=== PATIENT | female | born 1970 | race Caucasian/White ===

== ENCOUNTER 2016-04-06 07:46 | Outpatient (CLI) | payer BC, OTHER | END 2016-04-06 07:47 | disposition home or self-care (01) | DX: R10.13 Epigastric pain (principal); D50.9 Iron deficiency anemia, unspecified ==

== ENCOUNTER 2016-05-31 07:48 | Day surgery (SDC) | payer OTHER ==
[2016-05-31] MEDS ORDERED: LACTATED RINGERS 1,000 ML IV ONE (08:10)
[2016-05-31] MEDS ORDERED: MIDAZOLAM 2 MG/2 ML VIAL IVP ONE (09:18)
[2016-05-31] MEDS ORDERED: fentaNYL 250 MCG/5 ML VIAL IVP ONE (09:18)
== END 2016-05-31 07:49 | disposition home or self-care (01) ==
PROC: 0DB68ZX Excision of Stomach, Via Natural or Artificial Opening Endoscopic, Diagnostic (ICD-10-PCS; principal; 2016-05-31 09:00)
DX: R10.13 Epigastric pain (principal); R10.12 Left upper quadrant pain; K31.9 Disease of stomach and duodenum, unspecified; Z87.891 Personal history of nicotine dependence; Z88.5 Allergy status to narcotic agent
CPT/HCPCS: 43239; 87081; J3010; J7120

== ENCOUNTER 2017-07-25 08:00 | Outpatient (CLI) | payer BC, OTHER | END 2017-07-25 08:01 | LOC: LAB.WCP 08:00 | PROVIDERS: ATTEND Family Medicine | DX: N39.0 Urinary tract infection, site not specified (principal) | CPT/HCPCS: 87086 ==

== ENCOUNTER 2017-11-02 11:51 | Outpatient (CLI) | payer BC ==
--- NOTE | 2017-11-02 13:01 | XRAY Report ---
Reason: WRIST JOINT PAIN Procedure Date: 11/02/2017 Accession Number: [id number] / [id number] Procedure: XR - Wrist 4 View LT CPT Code: FULL RESULT: EXAM: LEFT WRIST RADIOGRAPHY EXAM DATE: 11/02/2017 12:19 PM. CLINICAL HISTORY: Wrist joint pain. COMPARISON: None. TECHNIQUE: 4 views. FINDINGS: There is a subtle lucency through the scaphoid with sclerotic line consistent with nondisplaced scaphoid fracture. IMPRESSION: Scaphoid fracture. RADIA
== END 2017-11-02 11:52 | disposition home or self-care (01) ==
LOC: DI 11:51
PROVIDERS: ATTEND Family Medicine
DX: S62.002A Unspecified fracture of navicular [scaphoid] bone of left wrist, initial encounter for closed fracture (principal)

== ENCOUNTER 2017-12-06 17:07 | Outpatient (CLI) | payer BC ==
--- NOTE | 2017-12-07 12:29 | CT Report ---
Reason: NONDISPLACED FRACTURE OF MIDDLE THIRD OF NAVICULAR Procedure Date: 12/06/2017 Accession Number: [id number] / [id number] Procedure: CT - Upper Extremity Left W/O CPT Code: FULL RESULT: EXAM: LEFT ELBOW CT WITHOUT CONTRAST EXAM DATE: 12/06/2017 05:41 PM. CLINICAL HISTORY: Nondisplaced fracture of middle third of navicular. COMPARISON: WRIST 3 VIEW LT 11/02/2017 11:56 AM WRIST 3 VIEW LT 11/27/2017 4:10 PM WRIST 2 VIEW LT 11/27/2017 4:12 PM. TECHNIQUE: Thin-section axial images were acquired of the elbow without contrast. Post-processing: Coronal and sagittal reformats. Other: None. In accordance with CT protocol optimization, one or more of the following dose reduction techniques were utilized for this exam: automated exposure control, adjustment of mA and/or KV based on patient size, or use of iterative reconstructive technique. FINDINGS: Bones: No acute fracture visualized. There is some cortical irregularity at the dorsal aspect of the proximal scaphoid which could represent an old healed fracture. Scaphoid otherwise appears normal. No scaphoid waist fracture identified. No destructive bone lesions. Joints: Normal. No large elbow effusion. No calcified loose bodies. Musculature: Normal. No fatty atrophy. Other: None. IMPRESSION: 1. No evidence of an acute, subacute or ununited fracture. 2. Slight cortical irregularity at the proximal dorsal aspect of the scaphoid could represent developmental variation or possibly old healed fracture. RADIA
== END 2017-12-06 17:08 | disposition home or self-care (01) ==
LOC: DI 17:07
PROVIDERS: ATTEND Orthopaedic Surgery Sports Medicine
DX: S62.025 Nondisplaced fracture of middle third of navicular [scaphoid] bone of left wrist (principal)

== ENCOUNTER 2018-03-04 08:13 | Outpatient (CLI) | payer BC ==
[2018-03-04 15:20] LABS: % IRON SATURATION 3 % (20-50); ALBUMIN 3.9 g/dL (3.2-5.5); ALBUMIN/GLOBULIN RATIO 1.3 (1.0-2.2); ALKALINE PHOSPHATASE 46 IU/L (42-121); ALT ALANINE AMINOTRANSFERASE 11 IU/L (10-60); AST ASPARTATE AMINOTRANSFERASE 16 IU/L (10-42); BILIRUBIN,TOTAL 0.3 mg/dL (0.2-1.0); BUN - BLOOD UREA NITROGEN 9 mg/dL (6-20); CALCIUM 8.7 mg/dL (8.5-10.3); CARBON DIOXIDE - CO2 25 mmol/L (21-32); CHLORIDE 104 mmol/L (101-111); CHOL/HDL RATIO 2.5 (<4.4); CHOLESTEROL 188 mg/dL; CREATININE 0.8 mg/dL (0.4-1.0); GFR - MDRD 77 (>89); GLUCOSE 82 mg/dL (70-100); HDL CHOLESTEROL 75 mg/dL; IRON 12 ug/dL (28-170); SODIUM 136 mmol/L (135-145); TOTAL IRON BINDING CAPACITY 428 ug/dL (250-450); TOTAL PROTEIN 6.8 g/dL (6.7-8.2); TRANSFERRIN 306 mg/dL (192-382)
[2018-03-04 15:51] LABS: LDL CHOLESTEROL,DIRECT 111 mg/dL; LDLD/HDL RATIO 1.5 (<4.4)
[2018-03-04 16:39] LABS: BASOPHILS # (AUTO) 0.1 10^3/uL (0.0-0.1); BASOPHILS % (AUTO) 1.8 %; EOSINOPHILS % (AUTO) 15.5 %; HGB - HEMOGLOBIN 8.2 g/dL (12.0-16.0); LYMPHOCYTES # (AUTO) 2.2 10^3/uL (1.5-3.5); LYMPHOCYTES % (AUTO) 35.7 %; MEAN CORPUSCULAR HEMOGLOBIN 19.4 pg (27.0-31.0); MEAN CORPUSCULAR HGB CONC 30.6 g/dL (32.0-36.0); MEAN CORPUSCULAR VOLUME 63.6 fL (81.0-99.0); MEAN PLATELET VOLUME 8.1 fL (7.9-10.8); MONOCYTES # (AUTO) 0.5 10^3/uL (0.0-1.0); MONOCYTES % (AUTO) 7.8 %; NEUTROPHILS # (AUTO) 2.4 10^3/uL (1.5-6.6); NEUTROPHILS % (AUTO) 39.2 %; PLT - PLATELET COUNT 433 10^3/uL (130-450); RED BLOOD COUNT 4.22 10^6/uL (4.20-5.40); RED CELL DISTRIBUTION WIDTH 21.2 % (12.0-15.0); WHITE BLOOD COUNT 6.2 x10^3/uL (4.8-10.8)
[2018-03-04 17:48] LABS: PLATELET MORPHOLOGY NORMAL APPEARANCE (NORMAL)
[2018-03-04 17:49] LABS: PLATELET ESTIMATE, MANUAL NORMAL (130-450,000) (NORMAL)
== END 2018-03-04 23:59 | disposition home or self-care (01) ==
LOC: LAB.WCP 08:13
PROVIDERS: ATTEND Family Medicine
DX: R10.13 Epigastric pain (principal); Z13.220 Encounter for screening for lipoid disorders; D50.9 Iron deficiency anemia, unspecified
CPT/HCPCS: 36415; 80053; 80061; 83540; 83721; 84466; 85025

== ENCOUNTER 2018-04-10 11:53 | Outpatient (CLI) | payer BC ==
[2018-04-10] MEDS ORDERED: REGADENOSON 0.4 MG/5 ML SYRINGE IVP ONE ×2 (13:02→14:52)
--- NOTE | 2018-04-10 15:53 | CARDIAC PROCEDURE NOTE ---
DATE OF SERVICE: 04/10/2018 Physician: Jimena Carter MD, [facility] INDICATION: Chest pain. CARDIAC RISK FACTORS: Family history of early heart disease (her father at age 49 of a cardiac event). PROCEDURE: After signing informed consent, the patient underwent a Lexiscan pharmaceutical stress test with nuclear myocardial perfusion imaging. RESTING HEART RATE: 87. PEAK HEART RATE: 124. The heart rate was very slow to recover (she states this is very typical and that she can "have heart rates of 120-170 during the day"). RESTING BLOOD PRESSURE: 140/70. PEAK BLOOD PRESSURE: 95/55. The blood pressure recovered after 2 minutes. Lexiscan was infused per protocol. The patient developed a mild headache only briefly, she had no chest pain or shortness of breath. RESTING EKG: Normal sinus rhythm, 0.[address] depressions in leads II, III, aVF, inverted T waves in leads III and aVF and biphasic T in lead V3. EKG AT PEAK: Deeper T-wave inversions now seen in leads II, III, aVF, V3 through V5 and flat T wave in V6. Unchanged ST segment abnormalities in leads II, III, aVF and new ST segment depressions of 1 mm in leads V3 through V6. IMPRESSION 1. Abnormal resting EKG. 2. Ischemic changes are present on this pharmaceutical stress test. 3. Abnormal heart rate and blood pressure response. 4. Nuclear images reported separately. cc: Freddie Zambrano DO TD: 04/10/2018 15:44 MTDD
--- NOTE | 2018-04-10 16:55 | Nuclear Medicine Report ---
Reason: CHEST PAIN Procedure Date: 04/10/2018 Accession Number: [id number] / [id number] Procedure: NM - Myocardial Perfusion STR/RST CPT Code: FULL RESULT: EXAM: SINGLE-ISOTOPE PHARMACOLOGICAL STRESS TEST WITH REGADENOSON. SINGLE-ISOTOPE AND ONE-DAY REST/STRESS MYOCARDIAL PERFUSION SCANS WITH TOMOGRAPHIC IMAGING, QUANTITATIVE ANALYSIS, WALL MOTION ANALYSIS AND CALCULATION OF EJECTION FRACTION. EXAM DATE: 04/10/2018 04:17 PM. CLINICAL HISTORY: CHEST PAIN. COMPARISON: None available. TECHNIQUE: After the intravenous administration of 10.6 mCi of Tc-99m sestamibi, a rest myocardial perfusion scan was done with tomography. Motion correction was applied when appropriate. After an appropriate delay, pharmacological stress was performed with the infusion of 0.4 mg regadenoson per protocol. According to protocol, 44 mCi of Tc-99m sestamibi was injected for stress myocardial perfusion scan. Motion correction was applied when appropriate. Gated tomographic images were obtained for wall motion analysis and computation of left ventricular ejection fraction. FINDINGS: On visual analysis, there is decreased activity in the anteroseptal wall which appears similar between rest and stress images. The computer reports lateral wall ischemia which I do not appreciate on visual analysis. Computer analysis Summed stress score 8 Summed rest score 3 Summed difference score 5 Wall motion analysis demonstrates no focal wall motion abnormality. The left ventricular end-diastolic volume is 41 cc. The left ventricular end-systolic volume is 12 cc. The left ventricular ejection fraction is calculated to be 70%. IMPRESSION: 1. On visual analysis, there is decreased activity in the anteroseptal wall, similar between rest and stress images, old infarct versus attenuation artifact. 2. Left ventricular ejection fraction of 70%. 3. Normal segmental and global wall motion. 4. Normal left ventricular cavity size, no change with stress. 5. Based on computer analysis, mildly abnormal study with moderate ischemia. RADIA
== END 2018-04-10 11:54 | disposition home or self-care (01) ==
LOC: DI 11:53
PROVIDERS: ATTEND Family Medicine
DX: R07.9 Chest pain, unspecified (principal); R94.31 Abnormal electrocardiogram [ECG] [EKG]
CPT/HCPCS: 78452; 93017; A9500; J2785

== ENCOUNTER 2019-04-22 17:59 | Outpatient (CLI) | payer OTHER ==
--- NOTE | 2019-04-22 23:14 | XRAY Report ---
Reason: L ANKLE PAIN Procedure Date: 04/22/2019 Accession Number: [id number] / [id number] Procedure: XR - Ankle 3 View LT CPT Code: Final Report FULL RESULT: EXAM: LEFT ANKLE RADIOGRAPHY EXAM DATE: 04/22/2019 06:18 PM. CLINICAL HISTORY: L ANKLE PAIN. COMPARISON: None. TECHNIQUE: 3 views. FINDINGS: Bones: Normal. No fractures or bone lesions. Joints: Normal. No effusion. No subluxations. The ankle mortise is normally aligned. Soft Tissues: Normal. No soft tissue swelling. IMPRESSION: Normal ankle radiography. RADIA
== END 2019-04-22 18:00 | disposition home or self-care (01) ==
LOC: DI 17:59
PROVIDERS: ATTEND Physician Assistant
DX: M25.572 Pain in left ankle and joints of left foot (principal)

== ENCOUNTER 2020-06-17 16:58 | Outpatient (CLI) | payer OTHER ==
[2020-06-17 20:52] LABS: BASOPHILS # (AUTO) 0.1 10^3/uL (0.0-0.1); BASOPHILS % (AUTO) 1.4 %; EOSINOPHILS # (AUTO) 0.5 10^3/uL (0.0-0.7); HCT - HEMATOCRIT 37.2 % (37.0-47.0); LYMPHOCYTES # (AUTO) 2.4 10^3/uL (1.5-3.5); LYMPHOCYTES % (AUTO) 32.8 %; MEAN CORPUSCULAR HEMOGLOBIN 28.8 pg (27.0-31.0); MEAN CORPUSCULAR HGB CONC 32.3 g/dL (32.0-36.0); MEAN CORPUSCULAR VOLUME 89.2 fL (81.0-99.0); MEAN PLATELET VOLUME 9.6 fL (7.9-10.8); MONOCYTES # (AUTO) 0.5 10^3/uL (0.0-1.0); MONOCYTES % (AUTO) 6.5 %; NEUTROPHILS # (AUTO) 3.8 10^3/uL (1.5-6.6); PLT - PLATELET COUNT 341 10^3/uL (130-450); RED BLOOD COUNT 4.17 10^6/uL (4.20-5.40); RED CELL DISTRIBUTION WIDTH 13.5 % (12.0-15.0); WHITE BLOOD COUNT 7.3 x10^3/uL (4.8-10.8)
[2020-06-17 21:54] LABS: ALBUMIN 4.3 g/dL (3.2-5.5); ALBUMIN/GLOBULIN RATIO 1.5 (1.0-2.2); BILIRUBIN,TOTAL 0.4 mg/dL (0.2-1.0); CALCIUM 8.9 mg/dL (8.5-10.3); CREATININE 0.7 mg/dL (0.4-1.0); POTASSIUM 4.2 mmol/L (3.5-5.0); TOTAL PROTEIN 7.2 g/dL (6.7-8.2)
== END 2020-06-17 16:59 | disposition home or self-care (01) ==
LOC: LAB.N 16:58
PROVIDERS: ATTEND Family Medicine
DX: D50.9 Iron deficiency anemia, unspecified (principal)
CPT/HCPCS: 36415; 80053; 82728; 83540; 84466; 85025

== ENCOUNTER 2021-02-21 07:56 | Outpatient (CLI) | payer OTHER ==
--- NOTE | 2021-02-21 09:49 | Ultrasound Report ---
PROCEDURE: Pelvic w/Transvaginal INDICATIONS: MENORRHAGIA TECHNIQUE: Real-time scanning was performed of the pelvic organs, with image documentation. Additional endovagi nal scanning was necessary due to incomplete visualization of the adnexal and endometrial structures by transabdominal scanning. COMPARISON: 05/05/2013 FINDINGS: No pathologic free abdominal or pelvic fluid. Uterus: Uterus is anteverted and at the upper limits of normal in size at 9.9 x 4.6 x 4.9 cm. The m yometrium is diffusely heterogeneous without dominant mass. The endometrium is indistinct. The endome trium measures 7.5 mm in combined thickness. Ovaries: Right ovary measures 3.4 x 2.0 x 3.5 cm for a volume of 12.4 cc. Left ovary measures 2.3 x 2.0 x 1.7 cm for a volume of 4.1 cc. There are less than 12 follicles per ovary. No dominant follicle or cyst. No suspicious adnexal mass. IMPRESSION: 1. Mildly heterogeneous myometrium in the uterus at the upper limits of normal in size. This raises t he possibility of adenomyosis and clinical correlation is recommended. 2. No dominant ovarian mass or cyst. 3. Normal endometrial thickness. Reviewed by: Sadie Swan MD on 02/21/2021 9:47 AM PST Approved by: Sadie Swan MD on 02/21/2021 9:47 AM PST Station ID: [id number]
== END 2021-02-21 07:57 | disposition home or self-care (01) ==
LOC: DI 07:56
PROVIDERS: ATTEND Obstetrics & Gynecology
DX: N92.0 Excessive and frequent menstruation with regular cycle (principal)

== ENCOUNTER 2021-03-17 17:19 | Outpatient (CLI) | payer OTHER ==
[2021-03-17 20:51] LABS: HGB - HEMOGLOBIN 11.8 g/dL (12.0-16.0); MEAN CORPUSCULAR HEMOGLOBIN 27.7 pg (27.0-31.0); MEAN CORPUSCULAR HGB CONC 31.9 g/dL (32.0-36.0); MEAN CORPUSCULAR VOLUME 86.9 fL (81.0-99.0); MEAN PLATELET VOLUME 9.9 fL (7.9-10.8); RED BLOOD COUNT 4.26 10^6/uL (4.20-5.40); RED CELL DISTRIBUTION WIDTH 14.1 % (12.0-15.0); WHITE BLOOD COUNT 7.9 x10^3/uL (4.8-10.8)
[2021-03-17 21:05] LABS: % IRON SATURATION 6 % (20-50); IRON 22 ug/dL (28-170); TOTAL IRON BINDING CAPACITY 347 ug/dL (250-450); TRANSFERRIN 248 mg/dL (192-382)
== END 2021-03-17 17:20 | disposition home or self-care (01) ==
LOC: LAB.N 17:19
PROVIDERS: ATTEND Obstetrics & Gynecology
DX: D50.9 Iron deficiency anemia, unspecified (principal); N92.0 Excessive and frequent menstruation with regular cycle
CPT/HCPCS: 36415; 82728; 83540; 84466; 85025; 85027

== ENCOUNTER 2021-05-23 08:09 | Outpatient (CLI) | payer OTHER ==
[2021-05-23 08:39] LABS: BASOPHILS # (AUTO) 0.1 10^3/uL (0.0-0.1); BASOPHILS % (AUTO) 1.2 %; EOSINOPHILS # (AUTO) 0.6 10^3/uL (0.0-0.7); EOSINOPHILS % (AUTO) 10.1 %; HGB - HEMOGLOBIN 12.8 g/dL (12.0-16.0); LYMPHOCYTES # (AUTO) 1.8 10^3/uL (1.5-3.5); LYMPHOCYTES % (AUTO) 31.4 %; MEAN CORPUSCULAR HEMOGLOBIN 28.4 pg (27.0-31.0); MEAN CORPUSCULAR VOLUME 88.7 fL (81.0-99.0); MEAN PLATELET VOLUME 9.2 fL (7.9-10.8); MONOCYTES # (AUTO) 0.4 10^3/uL (0.0-1.0); MONOCYTES % (AUTO) 7.5 %; NEUTROPHILS # (AUTO) 2.9 10^3/uL (1.5-6.6); NEUTROPHILS % (AUTO) 49.5 %; PLT - PLATELET COUNT 268 10^3/uL (130-450); RED BLOOD COUNT 4.51 10^6/uL (4.20-5.40); RED CELL DISTRIBUTION WIDTH 15.3 % (12.0-15.0); WHITE BLOOD COUNT 5.8 x10^3/uL (4.8-10.8)
[2021-05-23 09:45] LABS: HCG UR QUAL NEGATIVE
== END 2021-05-23 08:10 | disposition home or self-care (01) ==
LOC: LAB 08:09
PROVIDERS: ATTEND Obstetrics & Gynecology
DX: Z01.812 Encounter for preprocedural laboratory examination (principal); N93.8 Other specified abnormal uterine and vaginal bleeding; N92.0 Excessive and frequent menstruation with regular cycle
CPT/HCPCS: 36415; 81025; 85025

== ENCOUNTER 2021-05-24 06:22 | Day surgery (SDC) | payer OTHER ==
[2021-05-24] MEDS ORDERED: GABAPENTIN 400 MG CAPSULE ONE (06:25)
[2021-05-24] MEDS ORDERED: ACETAMINOPHEN 1,000 MG/100 ML 100 ML IV ONE (06:25)
[2021-05-24] MEDS ORDERED: LACTATED RINGERS 1,000 ML IV ONE ×2 (06:25→08:57)
[2021-05-24] MEDS ORDERED: CELECOXIB 100 MG CAPSULE PO ONE (06:25)
[2021-05-24] MEDS ORDERED: METOCLOPRAMIDE 10 MG/2 ML VIAL IVP PRN (07:13)
[2021-05-24] MEDS ORDERED: ATROPINE ABBOJECT 1 MG/10 ML SYRINGE IVP PRN (07:13)
[2021-05-24] MEDS ORDERED: ONDANSETRON 4 MG/2 ML VIAL IVP PRN (07:13)
[2021-05-24] MEDS ORDERED: fentaNYL 100 MCG/2 ML VIAL IVP PRN (07:13)
[2021-05-24] MEDS ORDERED: ePHEDrine 50 MG/ML VIAL IVP PRN (07:13)
[2021-05-24] MEDS ORDERED: HYDROmorphone 0.5 MG/0.5 ML SYRINGE IVP PRN (07:13)
[2021-05-24] MEDS ORDERED: MORPHINE 2 MG/ML CARPUJECT IVP PRN (07:13)
[2021-05-24] MEDS ORDERED: NALOXONE 0.4 MG/ML VIAL IVP PRN (07:13)
--- NOTE | 2021-05-24 07:13 | ANESTHESIA ---
Pre-Anesthesia VS, & Labs - Diagnosis anemia - Procedure myosure, hysteroscopy Vital Signs: Temp Pulse Resp BP Pulse Ox 37.1 C 66 16 101/73 100 05/24/21 06:26 05/24/21 06:26 05/24/21 06:26 05/24/21 06:26 05/24/21 06:26 Height: 5 ft 6 in Weight (kg): 53 kg Body Mass Index: 18.8 BMI Classification: Healthy weight - NPO >8 hours - Is Patient ?: No - Lab Results Current Lab Results: Laboratory Tests 05/24/21 06:57: POC Whole Bld Glucose 88 Lab results reviewed: Yes Home Medications and Allergies Home Medications: Ambulatory Orders Aspirin/Acetaminophen/Caffeine [Excedrin Migraine Caplet] 1 each PO PRN PRN 05/16/21 Cetirizine [ZyrTEC] 10 mg PO DAILY PRN 05/16/21 Rizatriptan Benzoate [Rizatriptan] 10 mg PO PRN PRN 05/31/16 Albuterol Sulfate [Proair Hfa Inhaler] 1 - 2 puffs INH Q4H PRN 04/04/18 Aspirin/Acetaminophen/Caffeine [Excedrin Migraine Caplet] 1 each PO PRN PRN 05/16/21 Cetirizine [ZyrTEC] 10 mg PO DAILY PRN 05/16/21 Allergies/Adverse Reactions: Allergies Allergy/AdvReac Type Severity Reaction Status Date / Time banana Allergy Severe Anaphylaxis Verified 04/04/18 11:04 tree nut Allergy Severe Hives Verified 04/04/18 11:06 raw vegetable Allergy Intermediate Hives Verified 04/04/18 11:05 Anes History & Medical History - Anesthetic History Anesthesia Complications: reports: No previous complications Family history of Anesthesia Complications: Denies Family history of Malignant Hyperthermia: Denies - Medical History Cardiovascular: reports: None Pulmonary: reports: Asthma Gastrointestinal: reports: None Urinary: reports: None Neuro: reports: Migraines Musculoskeletal: reports: None Endocrine/Autoimmune: reports: None Skin: reports: Eczema Smoking Status: Former smoker - Surgical History General: reports: EGD Gynecologic: reports: Tubal ligation Exam General: Alert, Oriented x3, Cooperative Dental: WNL Mouth Openin Fingerbreadth Neck Mobility: Normal Mallampati classification: II Thyromental Distance: 4-6 cm Respiratory: Lungs clear, Normal breath sounds, No respiratory distress Cardiovascular: Regular rate Neurological: Normal speech Mental/Cognitive Status: Alert/Oriented X3, Normal for patient Cognitive Status: Within normal limits Plan Anesthesia Type: General Consent for Procedure(s) Verified and Reviewed: Yes Code Status: Attempt Resuscitation ASA classification: 2-Mild systemic disease Is this case an emergency?: No
[2021-05-24] MEDS ORDERED: ONDANSETRON 4 MG/2 ML VIAL ONE (07:14)
[2021-05-24] MEDS ORDERED: MIDAZOLAM 2 MG/2 ML VIAL ONE (07:14)
[2021-05-24] MEDS ORDERED: PROPOFOL 200 MG/20 ML VIAL IVP ONE (07:14)
[2021-05-24] MEDS ORDERED: DEXAMETHASONE 4 MG/ML VIAL ONE (07:14)
[2021-05-24] MEDS ORDERED: LIDOCAINE-MPF 2% 5 ML VIAL ONE (07:14)
[2021-05-24] MEDS ORDERED: fentaNYL 100 MCG/2 ML VIAL ONE (07:14)
[2021-05-24 07:19] LABS: BASOPHILS # (AUTO) 0.1 10^3/uL (0.0-0.1); BASOPHILS % (AUTO) 1.5 %; EOSINOPHILS # (AUTO) 0.6 10^3/uL (0.0-0.7); EOSINOPHILS % (AUTO) 11.7 %; HCT - HEMATOCRIT 38.5 % (37.0-47.0); HGB - HEMOGLOBIN 12.4 g/dL (12.0-16.0); LYMPHOCYTES % (AUTO) 37.6 %; MEAN CORPUSCULAR HEMOGLOBIN 28.8 pg (27.0-31.0); MEAN CORPUSCULAR HGB CONC 32.2 g/dL (32.0-36.0); MEAN CORPUSCULAR VOLUME 89.3 fL (81.0-99.0); MEAN PLATELET VOLUME 10.5 fL (7.9-10.8); MONOCYTES # (AUTO) 0.4 10^3/uL (0.0-1.0); MONOCYTES % (AUTO) 8.1 %; NEUTROPHILS # (AUTO) 2.1 10^3/uL (1.5-6.6); NEUTROPHILS % (AUTO) 40.7 %; RED BLOOD COUNT 4.31 10^6/uL (4.20-5.40); RED CELL DISTRIBUTION WIDTH 15.4 % (12.0-15.0); WHITE BLOOD COUNT 5.2 x10^3/uL (4.8-10.8)
[2021-05-24 07:20] LABS: SLIDE REVIEW? Indicated
[2021-05-24] MEDS ORDERED: LIDOCAINE 2%-EPI 1:100000 20 ML MDV ONE (07:49)
[2021-05-24] MEDS ORDERED: BUPIVACAINE 0.5% PF 10 ML VIAL ONE (07:50)
[2021-05-24 07:51] LABS: PLATELET MORPHOLOGY PLATELET CLUMPING (NORMAL)
[2021-05-24] MEDS ORDERED: LACTATED RINGERS 1,000 ML IV SCH (08:00)
[2021-05-24] MEDS ORDERED: LIDOCAINE 2%-EPI 1:100000 20 ML MDV SUBQ ONE (08:45)
[2021-05-24] MEDS ORDERED: BUPIVACAINE 0.5% PF 10 ML VIAL IM ONE (08:45)
--- NOTE | 2021-05-24 09:27 | ANESTHESIA POST OP EVALUATION ---
Anesthesia Post Eval - Post Anesthesia Eval Vitals: Last Vital Signs Temp 36.7 C 05/24/21 09:23 Pulse 68 05/24/21 09:23 Resp 13 05/24/21 09:23 BP 109/74 05/24/21 09:23 Pulse Ox 100 05/24/21 09:23 CV Function Including HR & BP: Stable Pain Control: Satisfactory Nausea & Vomiting: Negative Mental Status: Baseline Respiratory Status: Airway Patent Hydration Status: Satisfactory Anesthesia Complications: None
--- NOTE | 2021-05-24 09:32 | OPERATIVE REPORT ---
Operative Report - General Procedure Date: 05/24/21 Planned Procedure: Hysteroscopy D&C and Novasure endometrial ablation Pre-Op Diagnosis: Dysfuntional uterine bleeding Procedure Performed: Hysteroscopy D&C and Novasure endometrial ablation Post Op Diagnosis: Same - Procedure Note Primary Surgeon: Lashanda Calderón MD Anesthesia Provider: Etienne Garduno CRNA Anesthesia Technique: General ET tube Pathology: uterine contents IV Fluids (mL): 1,000 Estimated Blood Loss (mL): 5 Urine Output (mL): 250 Indications: Patient is a 51 yo here for hysteroscopy D&C and endometrial ablation. She was last seen in clinic on 04/28/21, at which time she underwent a pap smear and EMB, both of which returned normal. Prior to that, she was last seen in clinic on 03/30/21 at which time she relayed a long hx of DUB. She has poorly tolerated hormones in the past. She was given and Rx for TXA but the pills were too large to swallow. She was instructed not to cut or crush them. Reviewed that she should call the pharmacy as to whether this is truly contraindicated. She once had to have a pill lodged in her esophagus removed via endoscopy. She has an us that was suggestive of adenomyosis.We discussed hysterectomy with hysteroscopy D&C and endometrial ablation as an alternative. She is opting for the hysteroscopy D&C and DARYN given the easier recovery. She is aware of the limitations of DARYN to manage adenomyosis. We have also discussed possibility of masking endometral cancer and making the staging process more complicated. She has questions about post-ablation syndrome. She had undergone BTL more than 2 decades ago. Findings: Uterine cavity with bilateral tubal ostia. Thick, fluffy endometrium Complications: none - Other Other Information/Narrative: Risks benefits and alternatives to the procedure were reviewed. Consent was again confirmed. Patient was taken to the operating room where she underwent general anesthesia. She was positioned in dorsolithotomy position with legs resting in yellowfin stirrups. She was prepped and draped in the usual sterile fashion. Preoperative antibiotics were not indicated. Preoperative checklist was performed. Exam under anesthesia was performed. Speculum was placed in the vagina and the cervix was visualized. Single-tooth tenaculum was placed at the anterior cervical lip. Paracervical block was administered using a total of 20 cc of 2% lidocaine with 0.5% bupivicaine with epinephrine was injected at the 4:00 and 8:00 positions lateral to the portio of the cervix. The cervical os was serially dilated with Hegar dilators to accommodate the caliber of the diagnostic hysteroscope. Uterus sounded to 9 cm. The hysteroscope was inserted and findings were noted as above. Hysteroscope was removed. Sharp curettage D&C was performed with sharp curettage. Hysteroscope was reinserted. Uterine cavity was smooth at close of t he procedure. The Novasure endometrial ablation instrument was inserted into the uterus. The uterus had sounded to 9 cm, the cervical length was 4.5 cm. The uterine cavity was 4.5 cm in length and 2.8 cm in width. The assessment of integrity of the uterine cavity was passed. The Novasure fired at 68 smith for 120 seconds. All instruments were removed from the uterus. Tenaculum was removed. Tenaculum sites were noted to be hemostatic. All instruments were removed from the vagina. Procedure was well-tolerated without complication. Fluid deficit: 245 cc NS
[2021-05-24 10:45] VITALS: BP 108/70
[2021-05-24] MEDS ORDERED: ONDANSETRON ODT 4 MG TABLET TL PRN (10:59)
[2021-05-24] MEDS ORDERED: ONDANSETRON ODT 4 MG TABLET ONE (11:03)
== END 2021-05-24 06:23 | disposition home or self-care (01) ==
LOC: SDS 06:22
PROVIDERS: ATTEND Obstetrics & Gynecology
PROC: 0UDB7ZZ Extraction of Endometrium, Via Natural or Artificial Opening (ICD-10-PCS; 2021-05-24)
PROC: 0U5B8ZZ Destruction of Endometrium, Via Natural or Artificial Opening Endoscopic (ICD-10-PCS; principal; 2021-05-24 07:30)
DX: N93.8 Other specified abnormal uterine and vaginal bleeding (principal); N92.0 Excessive and frequent menstruation with regular cycle; Z87.891 Personal history of nicotine dependence
CPT/HCPCS: 58563; 85025; A9270; J0131; J7120; Q0162

== ENCOUNTER 2021-09-05 12:09 | Emergency (ER) | payer OTHER ==
[2021-09-05] MEDS ORDERED: ONDANSETRON ODT 4 MG TABLET TL STA (12:18)
[2021-09-05 12:36] LABS: BASOPHILS # (AUTO) 0.1 10^3/uL (0.0-0.1); BASOPHILS % (AUTO) 0.7 %; EOSINOPHILS # (AUTO) 0.1 10^3/uL (0.0-0.7); EOSINOPHILS % (AUTO) 0.7 %; HCT - HEMATOCRIT 37.7 % (37.0-47.0); HGB - HEMOGLOBIN 12.7 g/dL (12.0-16.0); LYMPHOCYTES # (AUTO) 1.1 10^3/uL (1.5-3.5); LYMPHOCYTES % (AUTO) 11.1 %; MEAN CORPUSCULAR HEMOGLOBIN 29.2 pg (27.0-31.0); MEAN CORPUSCULAR HGB CONC 33.7 g/dL (32.0-36.0); MEAN CORPUSCULAR VOLUME 86.7 fL (81.0-99.0); MEAN PLATELET VOLUME 9.3 fL (7.9-10.8); MONOCYTES # (AUTO) 0.4 10^3/uL (0.0-1.0); MONOCYTES % (AUTO) 4.3 %; NEUTROPHILS % (AUTO) 82.9 %; PLT - PLATELET COUNT 310 10^3/uL (130-450); RED BLOOD COUNT 4.35 10^6/uL (4.20-5.40); WHITE BLOOD COUNT 9.7 x10^3/uL (4.8-10.8)
[2021-09-05 12:59] LABS: ALBUMIN 4.4 g/dL (3.2-5.5); ALBUMIN/GLOBULIN RATIO 1.4 (1.0-2.2); BILIRUBIN,TOTAL 0.5 mg/dL (0.2-1.0); CALCIUM 9.4 mg/dL (8.5-10.3); CREATININE 0.9 mg/dL (0.4-1.0); POTASSIUM 3.1 mmol/L (3.5-5.0); TOTAL PROTEIN 7.5 g/dL (6.7-8.2)
[2021-09-05 14:25] LABS: BILIRUBIN,URINE NEGATIVE (NEGATIVE); GLUCOSE, URINE (UA) NEGATIVE (NEGATIVE); KETONES,URINE (UA) 15 mg/dL (NEGATIVE); LEUKOCYTE ESTERASE, URINE NEGATIVE (NEGATIVE); NITRITE,URINE NEGATIVE (NEGATIVE); OCCULT BLOOD,URINE NEGATIVE (NEGATIVE); PH,URINE >=9.0 PH (5.0-7.5); PROTEIN,URINE TRACE mg/dL (NEGATIVE); UROBILINOGEN,URINE 0.2 (NORMAL) E.U./dL (NORMAL)
[2021-09-05 14:46] LABS: CLARITY,URINE HAZY (CLEAR)
[2021-09-05 14:47] LABS: HCG UR QUAL NEGATIVE
[2021-09-05 15:10] LABS: RBC,URINE 0-5 /HPF (0-5); SQUAMOUS EPITHELIAL CELL,UR FEW Squamous (<= Few)
[2021-09-05 15:11] LABS: BACTERIA,URINE Many /HPF (None Seen)
[2021-09-05] MEDS ORDERED: PROMETHAZINE INJ 12.5 MG in SODIUM CHLORIDE 0.9% 50 ML IV STA (15:24)
[2021-09-05] MEDS ORDERED: HYDROmorphone 1 MG/ML CARPUJECT IVP STA (15:24)
--- NOTE | 2021-09-05 15:59 | Ultrasound Report ---
PROCEDURE: Abdomen Limited INDICATIONS: RUQ pain/nausea/vom TECHNIQUE: Real-time focused scanning was performed of the abdomen, with image documentation. COMPARISON: Nuclear medicine biliary scan dated 03/22/2015 FINDINGS: Liver is normal in size and echotexture. No discrete hepatic lesion. Normal hepatopedal flow is seen in patent main portal vein. There is no gallstone. Trace amount of pericholecystic fluid is seen. No gallbladder wall thickening. No sonographic Carroll's sign. There is no intrahepatic biliary ductal dilatation. Common bile that measures up to 2.3 mm in diamete r and is within normal limits. Visualized portion of pancreas shows no gross abnormality. Right kidney measures 9.4 cm in length and 1.2 cm in renal cortical thickness. Possible tiny nonobstr ucting less than 2 mm stone is seen in right kidney. No hydronephrosis or solid appearing renal lesio n. Small amount of free fluid is seen in Morison's pouch. IMPRESSION: Small amount of abdominal and pericholecystic free fluid. No sonographic evidence of acute cholecystitis. No cholelithiasis. Possible tiny stone versus vascular calcification in right kidney. No hydronephrosis or solid-appeari ng renal lesion. Normal-appearing liver and pancreas. Reviewed by: Deandre Linda MD on 09/05/2021 3:58 PM PDT Approved by: Deandre Linda MD on 09/05/2021 3:58 PM PDT Station ID: [id number]
--- NOTE | 2021-09-05 16:37 | ED Physician Documentation ---
PD HPI ABD PAIN - Stated complaint Stated Complaint: STOMACH PAIN - Chief complaint Chief Complaint: Abd Pain - History obtained from History obtained from: Patient - Additional information Additional information: Pt comes to the ED with CC of upper abdominal pain and vomiting today. She has been seen for similar sx before, and states "they always tell me everything is fine". Pt denies any fever or chills. Family h/o gallstones, but pt's US was negative last year. No other complaints at this time. Review of Systems Ten Systems: 10 systems reviewed and negative Constitutional: reports: Reviewed and negative Eyes: reports: Reviewed and negative Ears: reports: Reviewed and negative Nose: reports: Reviewed and negative Throat: reports: Reviewed and negative Cardiac: reports: Reviewed and negative Respiratory: reports: Reviewed and negative GI: reports: Abdominal Pain, Nausea, Vomiting : reports: Reviewed and negative Skin: reports: Reviewed and negative Musculoskeletal: reports: Reviewed and negative Neurologic: reports: Reviewed and negative Psychiatric: reports: Reviewed and negative Endocrine: reports: Reviewed and negative Immunocompromised: reports: Reviewed and negative PD PAST MEDICAL HISTORY - Past Medical History Past Medical History: Yes Cardiovascular: None Respiratory: Asthma Neuro: Migraines Endocrine/Autoimmune: None GI: None : None HEENT: Chronic vision loss Psych: None Musculoskeletal: None Derm: Eczema - Past Surgical History Past Surgical History: Yes General: EGD /APPLICATION CONSULTANT: Tubal ligation - Present Medications Home Medications: Ambulatory Orders Medication Instructions Recorded Confirmed Rizatriptan Benzoate [Rizatriptan] 10 mg PO PRN PRN 05/31/16 05/16/21 Albuterol Sulfate [Proair Hfa 1 - 2 puffs INH Q4H PRN 04/04/18 05/16/21 Inhaler] Aspirin/Acetaminophen/Caffeine 1 each PO PRN PRN 05/16/21 05/16/21 [Excedrin Migraine Caplet] Cetirizine [ZyrTEC] 10 mg PO DAILY PRN 05/16/21 05/16/21 Acetaminophen [Acetaminophen Extra 1,000 mg PO Q8H PRN #60 tablet 05/24/21 Strength] Docusate Sodium 100Mg Capsule 100 - 200 mg PO BID PRN #60 cap 05/24/21 [Colace 100Mg Capsule] Ibuprofen [Motrin] 600 mg PO Q6H PRN #60 tab 05/24/21 oxyCODONE [Roxicodone] 2.5 - 5 mg PO Q4H PRN #12 tablet 05/24/21 HYDROcod/ACETAM 5/325 [Fackler 5/325] 1 - 2 tablet PO Q6H PRN #14 tablet 09/05/21 Ondansetron Odt [Zofran] 4 mg TL Q6H PRN #10 tablet 09/05/21 - Allergies Allergies/Adverse Reactions: Allergies Allergy/AdvReac Type Severity Reaction Status Date / Time banana Allergy Severe Anaphylaxis Verified 09/05/21 12:16 tree nut Allergy Severe Hives Verified 09/05/21 12:16 raw vegetable Allergy Intermediate Hives Verified 09/05/21 12:16 - Social History Does the pt smoke?: No Smoking Status: Never smoker Does the pt drink ETOH?: No Does the pt have substance abuse?: No - Immunizations Immunizations are current?: Yes PD ED PE NORMAL - Vitals Vital signs reviewed: Yes - General General: Alert and oriented X 3, Well developed/nourished, Other (The patient is visibly uncomfortable, holding her upper abdomen and retching.) - HEENT HEENT: Atraumatic, PERRL, EOMI, Moist mucous membranes - Neck Neck: Supple, no meningeal sign - Cardiac Cardiac: RRR, No murmur, Strong equal pulses - Respiratory Respiratory: No respiratory distress, Clear bilaterally - Abdomen Abdomen: Soft, Non distended, Other (Tender diffusely over upper abdomen, no rebound or guarding.) - Back Back: No CVA TTP - Derm Derm: Normal color, Warm and dry, No rash - Extremities Extremities: No deformity, No edema - Neuro Neuro: Alert and oriented X 3, asset management coordinator 2-12 intact, Other (Grossly intact) - Psych Psych: Normal mood, Normal affect Results - Vitals Vitals: Oxygen O2 Source Room air - Labs Labs: Laboratory Tests 09/05/21 09/05/21 09/05/21 12:32 12:32 14:00 WBC 9.7 RBC 4.35 Hgb 12.7 Hct 37.7 MCV 86.7 MCH 29.2 MCHC 33.7 RDW 14.0 Plt Count 310 MPV 9.3 Neut # (Auto) 8.0 H Lymph # (Auto) 1.1 L [place] # (Auto) 0.4 Eos # (Auto) 0.1 Baso # (Auto) 0.1 Absolute Nucleated RBC 0.00 Nucleated RBC % 0.0 Sodium 139 Potassium 3.1 L Chloride 101 Carbon Dioxide 28 Anion Gap 10.0 BUN 12 Creatinine 0.9 Estimated GFR (MDRD) 66 L Glucose 100 Calcium 9.4 Total Bilirubin 0.5 AST 14 ALT 13 Alkaline Phosphatase 42 Total Protein 7.5 Albumin 4.4 Globulin 3.1 Albumin/Globulin Ratio 1.4 Lipase 36 Urine Color YELLOW Urine Clarity HAZY Urine pH >=9.0 H Ur Specific [place] 1.010 Urine Protein TRACE Urine Glucose (UA) NEGATIVE Urine Ketones 15 H Urine Occult Blood NEGATIVE Urine Nitrite NEGATIVE Urine Bilirubin NEGATIVE Urine Urobilinogen 0.2 (NORMAL) Ur Leukocyte Esterase NEGATIVE Urine RBC 0-5 Urine WBC 4-5 Ur Squamous Epith Cells FEW Squamous Urine Bacteria Many H Ur Microscopic Review INDICATED Urine Culture Comments NOT INDICATED Urine HCG, Qual NEGATIVE - Rads (name of study) Ultrasound abdomen Radiology: Final report received, EMP read indepedently, See rad report PD MEDICAL DECISION MAKING - ED course Complexity details: reviewed results, re-evaluated patient, considered differential, d/w patient ED course: Patient was treated symptomatically and found to be feeling much better. Her ultrasound was negative, as were her labs. I discussed with the patient that she needs to follow-up with her primary doctor to discuss getting referred for another endoscopy and probably, for a GI evaluation to try to troubleshoot the cause of her recurrent episodes of upper abdominal pain. Departure - Departure Disposition: 01 Home, Self Care Clinical Impression: Abdominal pain Qualifiers: Abdominal location: upper abdomen, unspecified Qualified Code(s): R10.10 - Upper abdominal pain, unspecified Vomiting Qualifiers: Vomiting type: bilious vomiting Nausea presence: with nausea Qualified Code(s): R11.14 - Bilious vomiting Condition: Stable Instructions: ED Abdominal Pain Female Non-Specific Abdominal Pain, ED Nausea Vomiting Prescriptions: HYDROcod/ACETAM 5/325 [Fackler 5/325] 1 - 2 tablet PO Q6H PRN #14 tablet PRN Reason: Pain Ondansetron Odt [Zofran] 4 mg TL Q6H PRN #10 tablet PRN Reason: Nausea / Vomiting Comments: Your labs look good. Your ultrasound shows the possibly a tiny stone within your gallbladder, though this would not be the cause of your pain today. It is possible that he had another stone that you were passing during the height of your pain and that this has caused the symptoms yet today. If this is the case, it does appear to have passed completely already. You may take the medications prescribed to help with pain and nausea. It is important that you follow-up with your primary care physician to discuss whether you should have another endoscopy or a referral back to the patient support partner for further evaluation of your ongoing upper abdominal pain. Your prescriptions have been electronically transmitted to [facility] pharmacy in [place]. Discharge Date/Time: 09/05/21 16:51
[2021-09-05 16:51] VITALS: BP 101/58
== END 2021-09-05 16:51 | disposition home or self-care (01) ==
LOC: ED 12:09
DX: R10.10 Upper abdominal pain, unspecified (principal); R11.14 Bilious vomiting
CPT/HCPCS: 36415; 76705; 80053; 81001; 81025; 83690; 85025; 96365; 96375; 99282; 99284; J1170; J7040; Q0162; 81003; 87086

== ENCOUNTER 2021-09-20 09:01 | Outpatient (CLI) | payer OTHER ==
[2021-09-20 13:05] LABS: PARTIAL THROMBOPLASTIN TIME 30.2 secs (24.9-33.3)
[2021-09-20 13:13] LABS: BASOPHILS # (AUTO) 0.1 10^3/uL (0.0-0.1); EOSINOPHILS # (AUTO) 0.4 10^3/uL (0.0-0.7); HCT - HEMATOCRIT 37.7 % (37.0-47.0); HGB - HEMOGLOBIN 12.2 g/dL (12.0-16.0); LYMPHOCYTES # (AUTO) 1.8 10^3/uL (1.5-3.5); LYMPHOCYTES % (AUTO) 30.6 %; MEAN CORPUSCULAR HGB CONC 32.4 g/dL (32.0-36.0); MEAN CORPUSCULAR VOLUME 89.8 fL (81.0-99.0); MEAN PLATELET VOLUME 10.6 fL (7.9-10.8); MONOCYTES # (AUTO) 0.4 10^3/uL (0.0-1.0); MONOCYTES % (AUTO) 6.6 %; NEUTROPHILS # (AUTO) 3.3 10^3/uL (1.5-6.6); NEUTROPHILS % (AUTO) 55.3 %; PLT - PLATELET COUNT 295 10^3/uL (130-450); RED CELL DISTRIBUTION WIDTH 14.4 % (12.0-15.0); WHITE BLOOD COUNT 5.9 x10^3/uL (4.8-10.8)
[2021-09-20 13:25] LABS: PT - PROTHROMBIN TIME 11.7 secs (9.9-12.6)
[2021-09-20 13:46] LABS: ALBUMIN 4.1 g/dL (3.2-5.5); ALBUMIN/GLOBULIN RATIO 1.4 (1.0-2.2); ALKALINE PHOSPHATASE 37 IU/L (42-121); ALT ALANINE AMINOTRANSFERASE 11 IU/L (10-60); AST ASPARTATE AMINOTRANSFERASE 13 IU/L (10-42); BILIRUBIN,TOTAL 0.5 mg/dL (0.2-1.0); BUN - BLOOD UREA NITROGEN 12 mg/dL (6-20); CALCIUM 9.3 mg/dL (8.5-10.3); CARBON DIOXIDE - CO2 27 mmol/L (21-32); CHLORIDE 105 mmol/L (101-111); CHOL/HDL RATIO 2.9 (<4.4); CHOLESTEROL 228 mg/dL; CREATININE 0.9 mg/dL (0.4-1.0); GFR - MDRD 66 (>89); GLUCOSE 84 mg/dL (70-100); HDL CHOLESTEROL 80 mg/dL; LDL CHOLESTEROL,CALCULATED 138 mg/dL; LDL/HDL RATIO 1.7 (<4.4); POTASSIUM 4.1 mmol/L (3.5-5.0); SODIUM 136 mmol/L (135-145); THYROID STIMULATING HORMONE 4.67 uIU/mL (0.34-5.60); TOTAL PROTEIN 7.1 g/dL (6.7-8.2); TRIGLYCERIDES 50 mg/dL; VLDL CHOLESTEROL 10 mg/dL
[2021-09-21 03:08] LABS: HCV AB <0.1 s/co ratio (0.0-0.9); HEPATITIS B SURFACE AB QUANT <3.1 mIU/mL (Immunity>9.9); HEPATITIS BE ANTIGEN Negative (Negative)
[2021-09-22 18:07] LABS: HCV RNA QUANTITATION HCV Not Detected IU/mL (.)
== END 2021-09-20 09:02 | disposition home or self-care (01) ==
LOC: LAB.N 09:01
PROVIDERS: ATTEND Physician Assistant
DX: R16.0 Hepatomegaly, not elsewhere classified (principal); Z13.220 Encounter for screening for lipoid disorders; Z13.29 Encounter for screening for other suspected endocrine disorder; D50.9 Iron deficiency anemia, unspecified
CPT/HCPCS: 36415; 80053; 80061; 83721; 84443; 85025; 85610; 85730; 86317; 86704; 86709; 86803; 87350; 87522

== ENCOUNTER 2022-04-28 18:43 | Outpatient (CLI) | payer OTHER ==
--- NOTE | 2022-04-28 20:20 | XRAY Report ---
PROCEDURE: Knee 2 View LT INDICATIONS: SPRAIN OF UNSPECIFIED SITE OF LEFT KNEE TECHNIQUE: 2 views of the left knee(s) were acquired. COMPARISON: None. FINDINGS: Bones: No fractures or dislocations. No suspicious bony lesions. Soft tissues: Mild to moderate joint effusion. No suspicious soft tissue calcifications. IMPRESSION: Mild to moderate knee joint effusion. No evidence acute bony abnormality of the left kne e. If there is clinical suspicion of internal derangement, nonemergent MRI may be helpful for further as sessment. Reviewed by: Quinten Eller MD on 04/28/2022 8:18 PM PST Approved by: Quinten Eller MD on 04/28/2022 8:18 PM PST Station ID: [id number]
== END 2022-04-28 18:44 | disposition home or self-care (01) ==
LOC: DI 18:43
PROVIDERS: ATTEND Nurse Practitioner
DX: M25.462 Effusion, left knee (principal)

== ENCOUNTER 2022-07-05 17:49 | Outpatient (CLI) | payer OTHER ==
[2022-07-05 20:37] LABS: BASOPHILS # (AUTO) 0.1 10^3/uL (0.0-0.1); BASOPHILS % (AUTO) 0.9 %; EOSINOPHILS # (AUTO) 0.2 10^3/uL (0.0-0.7); HGB - HEMOGLOBIN 12.1 g/dL (12.0-16.0); LYMPHOCYTES # (AUTO) 2.5 10^3/uL (1.5-3.5); LYMPHOCYTES % (AUTO) 35.7 %; MEAN CORPUSCULAR HEMOGLOBIN 28.3 pg (27.0-31.0); MEAN CORPUSCULAR HGB CONC 31.8 g/dL (32.0-36.0); MEAN CORPUSCULAR VOLUME 88.8 fL (81.0-99.0); MEAN PLATELET VOLUME 10.2 fL (7.9-10.8); MONOCYTES # (AUTO) 0.6 10^3/uL (0.0-1.0); MONOCYTES % (AUTO) 8.2 %; NEUTROPHILS # (AUTO) 3.6 10^3/uL (1.5-6.6); NEUTROPHILS % (AUTO) 51.9 %; PLT - PLATELET COUNT 276 10^3/uL (130-450); RED BLOOD COUNT 4.28 10^6/uL (4.20-5.40); RED CELL DISTRIBUTION WIDTH 13.6 % (12.0-15.0); WHITE BLOOD COUNT 6.9 x10^3/uL (4.8-10.8)
[2022-07-05 20:51] LABS: % IRON SATURATION 13 % (20-50); ALBUMIN 4.1 g/dL (3.2-5.5); ALBUMIN/GLOBULIN RATIO 1.3 (1.0-2.2); ALKALINE PHOSPHATASE 52 IU/L (42-121); ALT ALANINE AMINOTRANSFERASE 16 IU/L (10-60); AST ASPARTATE AMINOTRANSFERASE 16 IU/L (10-42); BILIRUBIN,TOTAL 0.5 mg/dL (0.2-1.0); BUN - BLOOD UREA NITROGEN 12 mg/dL (6-20); CALCIUM 8.9 mg/dL (8.5-10.3); CARBON DIOXIDE - CO2 25 mmol/L (21-32); CHLORIDE 106 mmol/L (101-111); CHOL/HDL RATIO 2.3 (<4.4); CHOLESTEROL 174 mg/dL; CREATININE 0.7 mg/dL (0.4-1.0); GFR - MDRD 88 (>89); GLUCOSE 84 mg/dL (70-100); HDL CHOLESTEROL 75 mg/dL; IRON 37 ug/dL (28-170); POTASSIUM 3.6 mmol/L (3.5-5.0); SODIUM 138 mmol/L (135-145); TOTAL IRON BINDING CAPACITY 288 ug/dL (250-450); TOTAL PROTEIN 7.2 g/dL (6.7-8.2); TRANSFERRIN 206 mg/dL (192-382); TRIGLYCERIDES 38 mg/dL
[2022-07-05 21:05] LABS: THYROID STIMULATING HORMONE 4.04 uIU/mL (0.34-5.60)
[2022-07-05 21:10] LABS: FERRITIN 85.6 ng/mL (11.0-306.8)
== END 2022-07-05 17:50 | disposition home or self-care (01) ==
LOC: LAB.N 17:49
PROVIDERS: ATTEND Physician Assistant
DX: K76.0 Fatty (change of) liver, not elsewhere classified (principal); N93.8 Other specified abnormal uterine and vaginal bleeding
CPT/HCPCS: 36415; 80053; 80061; 82728; 83540; 83721; 84443; 84466; 85025

== ENCOUNTER 2022-07-28 07:38 | Outpatient (CLI) | payer OTHER ==
--- NOTE | 2022-07-28 12:32 | XRAY Report ---
PROCEDURE: Wrist 3 View RT INDICATIONS: PAIN IN RIGHT WRIST TECHNIQUE: 3 views of the wrist were acquired. COMPARISON: None. FINDINGS: Bones: No fractures or dislocations. No suspicious bony lesions. Soft tissues: No suspicious soft tissue calcifications or masses. IMPRESSION: No visualized acute fracture or dislocation. However, occult injury cannot be excluded. Recommend eduardo rt interval imaging follow-up in 7-10 days as clinically indicated for additional evaluation. Reviewed by: Sandra Coronado MD on 07/28/2022 12:31 PM PDT Approved by: Sandra Coronado MD on 07/28/2022 12:31 PM PDT Station ID: [id number]
== END 2022-07-28 07:39 | disposition home or self-care (01) ==
LOC: DI.N 07:38
PROVIDERS: ATTEND Physician Assistant
DX: M25.531 Pain in right wrist (principal)